=== PATIENT | male | born 1950 | race Caucasian/White ===

== ENCOUNTER → 2018-07-30 | Outpatient (CLI) | payer MEDICARE ==
--- NOTE | 2018-07-30 21:11 | MR ---
EXAMINATION TYPE: MR brain wo/w con DATE OF EXAM: 07/30/2018 COMPARISON: Prior CT brain 06/05/2014 HISTORY: Obstructive hydrocephalus, Dizziness TECHNIQUE: Multiplanar, multisequence images of the brain and brainstem is performed without and with IV contras t, utilizing 9.5 mL intravenous Gadavist . FINDINGS: Diffusion weighted images demonstrate no evidence of a recent infarct or other diffusion ab normality. There is no extra-axial fluid collection. Confluent and scattered hyperintensities are pr esent in the periventricular, subcortical, deep white matter on inversion recovery and T2-weighted se quences, there are approximately 50 lesions.. The low attenuation in the right frontal lobe with antonio rounding scoliosis is stable compared to prior CT at the site of patient's ventriculostomy. The ventr icular system and cisternal spaces are stable in size and appearance, prominent. The brain volume is age appropriate. Midline structures demonstrate some slight thinning of the posterior corpus callosum, pituitary, cerv ical medullary junction, cerebellopontine angles, cervical medullary junction are within normal limit s.. The craniocervical junction appears within normal limits. Post contrast images demonstrate no a bnormal enhancement. The dural venous sinuses appear patent. The visualized sinuses are remarkable fo r inflammatory change in the ethmoid air cells and the globes are intact. Inflammatory change noted w ithin the mastoid air cells on the right. IMPRESSION: Findings are similar to prior exam. Extensive white matter demyelination changes as descr ibed, prominent ventricles show a similar appearance to prior exam. Age-related atrophy. Additional f indings above.
== END ==
LOC: RADMRIMAIN 09:10
PROVIDERS: ATTEND Family Medicine
DX: G37.9 Demyelinating disease of central nervous system, unspecified (principal); G31.1 Senile degeneration of brain, not elsewhere classified
CPT/HCPCS: 82565; 70553; 36415; A9585

== ENCOUNTER → 2019-08-10 | Outpatient (CLI) | payer MEDICARE ==
[2019-08-10 16:15] LABS: Basophils # (A) 0.3 k/uL (0-0.2); Basophils % (A) 3 %; Eosinophils # (A) 0.2 k/uL (0-0.7); Eosinophils % (A) 2 %; HGB 16.7 gm/dL (13.0-17.5); Lymphocytes # (A) 0.9 k/uL (1.0-4.8); Lymphocytes % (A) 9 %; MCH 28.6 pg (25.0-35.0); MCHC 31.6 g/dL (31.0-37.0); MCV 90.3 fL (80.0-100.0); Mean Platelet Volume 7.6; Monocytes # (A) 0.8 k/uL (0-1.0); Monocytes % (A) 8 %; Neutrophils # (A) 7.7 k/uL (1.3-7.7); Neutrophils % (A) 76 %; Platelet Count 303 k/uL (150-450); RBC 5.86 m/uL (4.30-5.90); RDW 14.6 % (11.5-15.5); WBC 10.1 k/uL (3.8-10.6)
[2019-08-10 19:22] LABS: Erythrocyte Sedimentation Rate 24 mm/hr (0-15)
[2019-08-11 00:44] LABS: African American GFR (CKD) 101.4 (60.0-200.0); Anion Gap 10.1 mmol/L (4.00-12.00); BUN/Creat Ratio 25.56 Ratio (12.00-20.00); C Reactive Protein 6.6 mg/dL (0.0-0.8); Calcium 9.7 mg/dL (8.7-10.3); Carbon Dioxide 25.9 mmol/L (21.6-31.8); Non-African American GFR(CKD) 87.5 (60.0-200.0); Potassium 5.2 mmol/L (3.5-5.5); Uric Acid 5.9 mg/dL (3.7-8.7)
[2019-08-11 00:51] LABS: T4, Free (Free Thyroxine) 0.9 ng/dL (0.80-1.80)
[2019-08-11 07:26] LABS: Cyclic Citrull Pep IgG Unit <0.5 U/mL; Cyclic Citrullinated Pep IgG NEGATIVE (NEGATIVE)
[2019-08-11 09:03] LABS: HLA B27 NEGATIVE
[2019-08-11 12:22] LABS: Angiotensin-1 Converting Enz. 41 U/L (8-52)
== END | disposition home or self-care (01) ==
LOC: LABWHC1 15:32
PROVIDERS: ATTEND Orthopaedic Surgery
DX: M25.511 Pain in right shoulder (principal); E55.9 Vitamin D deficiency, unspecified; E03.9 Hypothyroidism, unspecified
CPT/HCPCS: 36415; 80048; 82164; 82306; 82550; 83520; 84439; 84443; 84450; 84460; 84550; 85025; 85652; 86038; 86140; 86200; 86431; 86812

== ENCOUNTER → 2019-08-16 | Outpatient (CLI) | payer MEDICARE ==
--- NOTE | 2019-08-16 16:10 | MR ---
EXAMINATION TYPE: MR shoulder RT wo con DATE OF EXAM: 08/16/2019 COMPARISON: NONE HISTORY: Right shoulder pain, primary osteoarthritis, rotator cuff tendon injury versus tear, and gle nohumeral osteoarthritis L per order. TECHNIQUE: Multiplanar, multisequence imaging of the right shoulder is attempted without contrast. FINDINGS: Because of patient pain he was only on able to completely axial imaging making evaluation s uboptimal or essentially nondiagnostic. There is moderate to large glenohumeral joint effusion noted. Long head of biceps shows normal location within the bicipital groove. Glenohumeral joint shows fair ly moderate narrowing and spurring on axial images. There is suggestion of 1.6 cm anterior round bone lesion axial image 13 could reflect intra-articular loose body. IMPRESSION: Incomplete nondiagnostic study with some incidental findings noted.
== END | disposition home or self-care (01) ==
LOC: RADMRIMAIN 06:14
PROVIDERS: ATTEND Orthopaedic Surgery
DX: Z53.9 Procedure and treatment not carried out, unspecified reason (principal)

== ENCOUNTER → 2020-09-03 | Outpatient (CLI) | payer MEDICARE ==
[2020-09-03 15:21] LABS: HCT 48.5 % (39.6-50.0); HGB 14.8 g/dL (13.0-17.0); MCH 27.5 pg (27.0-32.0); MCHC 30.5 g/dL (32.0-37.0); MCV 90.1 fL (80.0-97.0); Platelet Count 228 X 10*3/uL (140-440); RBC 5.38 X 10*6/uL (4.40-5.60); RDW 19.4 % (11.5-14.5); WBC 7.16 X 10*3/uL (4.50-10.00)
== END | disposition home or self-care (01) ==
LOC: LABWHC1 09:09
PROVIDERS: ATTEND Urology
DX: C61 Malignant neoplasm of prostate (principal); E29.1 Testicular hypofunction
CPT/HCPCS: 36415; 84153; 85027

== ENCOUNTER → 2020-11-05 | Outpatient (CLI) | payer MEDICARE ==
--- NOTE | 2020-11-05 14:43 | XR ---
EXAMINATION TYPE: XR chest 2V DATE OF EXAM: 11/05/2020 COMPARISON: Chest x-ray 10/16/2014 HISTORY: Z01.818 TECHNIQUE: Frontal and lateral views of the chest are obtained. FINDINGS: There is no focal air space opacity, pleural effusion, or pneumothorax seen. The cardiac silhouette size is within normal limits. 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 Prominent lung volumes could be indicative of underlying COPD. IMPRESSION: No acute cardiopulmonary process.
== END | disposition home or self-care (01) ==
LOC: RADXRMAIN 14:21
PROVIDERS: ATTEND Nurse Practitioner
DX: Z01.818 Encounter for other preprocedural examination (principal)
CPT/HCPCS: 71046

== ENCOUNTER 2023-01-25 17:09 | Emergency (ER) | payer MEDICARE ==
[2023-01-25 17:24] VITALS: RESP 18; TEMP 98
--- NOTE | 2023-01-25 17:43 | ED ---
Weakness HPI - General Chief complaint: Weakness Stated complaint: Can't Walk Time Seen by Provider: 01/25/23 17:28 Source: patient Mode of arrival: EMS Limitations: physical limitation - History of Present Illness Initial comments: This patient is a 72-year-old man who presents here to have evaluation of generalized weakness. The patient states that he was walking from his apartment to a store to get a drink when he felt like his knees were going to give out. He states that 2 people from the Apartments helped lower him to the ground so he did not fall. He rested for a moment and then was not able to get back up. EMS was called and the patient was still not able to get to a standing position so he was brought here. He denies focal weakness. He states that it feels like both knees are weak. He in fact had been feeling this way for number days and had called his physician to arrange an appointment which is coming this week. He is not having chest pain, dyspnea, focal weakness, headache neck or back pain. MD Complaint: generalized weakness Onset/Timin -: hour(s) Location: generalized Severity: moderate Consistency: constant Improves with: none Worsens with: none Associated Symptoms: denies other symptoms - Related Data Home Medications Medication Instructions Recorded Confirmed Multivitamins, Thera [Multivitamin 1 tab PO DAILY 01/25/23 01/25/23 (formulary)] Rosuvastatin [Crestor] 10 mg PO DAILY 01/25/23 01/25/23 Sildenafil Citrate 100 mg PO DAILY PRN 01/25/23 01/25/23 Vitamin D(Unknown Dose) 1 tab PO DAILY 01/25/23 01/25/23 Allergies Allergy/AdvReac Type Severity Reaction Status Date / Time naproxen sodium [From Aleve] Allergy Anaphylaxis Verified 01/25/23 20:11 Review of Systems ROS Statement: Those systems with pertinent positive or pertinent negative responses have been documented in the HPI. ROS Other: All systems not noted in ROS Statement are negative. Constitutional: Reports: weakness. Denies: fever, chills Eyes: Denies: vision change Respiratory: Denies: cough, dyspnea Cardiovascular: Denies: chest pain, palpitations, edema Gastrointestinal: Denies: abdominal pain, vomiting, diarrhea, melena, hemat ochezia Genitourinary: Denies: dysuria, hematuria Musculoskeletal: Denies: back pain Skin: Denies: rash Neurological: Denies: headache, weakness, numbness, paresthesias Past Medical History Past Medical History: Cancer, COPD, Hyperlipidemia, Memory Impairment, Osteoarthritis (OA), Prostate Disorder, Rheumatoid Arthritis (RA) Additional Past Medical History / Comment(s): Closed head injury D/T FALL DOWN STAIRS IN 2005 with post traumatic headaches-does get relief w/lumbar punctures occasionally to relieve pressure/fluid, dizziness and memory loss, POOR BALANCE/EQUALIBERIUM OFF,PROSTATE CA 5 yrs. ago w/surgery & radiation tx., un sure if has COPD, poss. History of Any Multi-Drug Resistant Organisms: None Reported Past Surgical History: Appendectomy, Cholecystectomy, Hernia Repair, Orthopedic Surgery, Prostate Surgery Additional Past Surgical History / Comment(s): closed head injury w/craniotomy, PROSTATECTOMY,. NUMEROUS PEACE KNEE SURGERIES ARTHROSCOPIC ,UMBILICAL HERNIA REPAIR ,CATARACT SX. Past Anesthesia/Blood Transfusion Reactions: No Reported Reaction Past Psychological History: No Psychological Hx Reported Smoking Status: Former smoker Past Alcohol Use History: Occasional Past Drug Use History: Marijuana - Past Family History Mother Family Medical History: Cancer Additional Family Medical History / Comment(s): COLON CANCER Brother(s) Family Medical History: Cancer Additional Family Medical History / Comment(s): LUNG & BONE General Exam Limitations: physical limitation General appearance: alert, in no apparent distress Head exam: Present: atraumatic, normocephalic Eye exam: Present: normal appearance. Absent: scleral icterus, conjunctival injection ENT exam: Present: normal oropharynx Neck exam: Present: normal inspection Respiratory exam: Present: normal lung sounds bilaterally. Absent: respiratory distress, wheezes, rales, rhonchi, stridor Cardiovascular Exam: Present: regular rate, normal rhythm, normal heart sounds. Absent: systolic murmur, diastolic murmur, rubs, gallop GI/Abdominal exam: Present: soft. Absent: distended, tenderness, guarding, rebound, rigid, mass Extremities exam: Present: normal inspection, normal capillary refill. Absent: pedal edema, calf tenderness Back exam: Present: normal inspection. Absent: CVA tenderness (R), CVA tenderness (L) Neurological exam: Present: alert, oriented X3, CN II-XII intact. Absent: motor sensory deficit Skin exam: Present: warm, dry, intact, normal color. Absent: rash Course Vital Signs 01/25/23 01/25/23 01/25/23 17:11 17:24 19:27 Temperature 98.0 F Pulse Rate 97 95 80 Respiratory 18 18 18 Rate Blood Pressure 145/92 186/93 O2 Sat by Pulse 95 98 Oximetry EKG Findings - EKG Results: EKG: interpreted by ERMD, sinus rhythm (Rate 97 bpm), normal axis - Blocks, [place], Hypertrophy, ST Abn: AV and intraventricular conduction: right bundle branch block (fixed/intermittent, complete/incomplete) Repolarization changes or abnormalities: nonspecific abnormality, ST segment, and/or T wave Medical Decision Making - Medical Decision Making The patient had chest x-ray which I interpreted as being negative for acute infiltrate, pneumothorax, congestive heart failure The patient is 72-year-old man here after having had episode of weakness observed by bystanders. The patient's physical exam and lab studies consistent with degree of dehydration. On reevaluation, the patient was quite upset about the length of his emergency department visit. I did attempt to further discuss the results and perform reevaluation, the patient would have none of this as she was quite upset. I attempted to explain that there were number of ambulance case is however he was not satisfied with this answer and just wanted to go and to follow-up later with his physician. Was pt. sent in by a medical professional or institution ([facility], SECURITY TECH, urgent care, hospital, or penitentiary...) When possible be specific @ -[No] Did you speak to anyone other than the patient for history (EMS, parent, family, police, friend...)? What history was obtained from this source @ -[No] Did you review nursing and triage notes (agree or disagree)? Why? @ -[I reviewed and agree with nursing and triage notes] Were old charts reviewed (outside hosp., previous admission, EMS record, old EKG, old radiological studies, urgent care reports/EKG's, penitentiary records)? Report findings @ -[No old charts were reviewed] Differential Diagnosis (chest pain, altered mental status, abdominal pain women, abdominal pain men, vaginal bleeding, weakness, fever, dyspnea, syncope, headache, dizziness, GI bleed, back pain, seizure, CVA, palpatations, mental health, musculoskeletal)? @ -[Differential Weakness: Hypoglycemia, shock, sepsis, hyponatremia, anemia, infection, SC, ETOH, adverse medicine reaction, overdose, stroke, this is not meant to be an all-inclusive list. EKG interpreted by me (3pts min.). @ -[As above] X-rays interpreted by me (1pt min.). @ -As above CT interpreted by me (1pt min.). @ -[None done] U/S interpreted by me (1pt. min.). @ -[None done] What testing was considered but not performed or refused? (CT, X-rays, U/S, labs)? Why? @ -[None] What meds were considered but not given or refused? Why? @ -[None] Did you discuss the management of the patient with other professionals (professionals i.e. , PA, SECURITY TECH, lab, RT, psych nurse, elementary school social worker, energy economist, teacher, hospital security officer, nurse case management)? Give summary @ -[No] Was smoking cessation discussed for >3mins.? @ -[No] Was critical care preformed (if so, how long)? @ -[No] Were there social determinants of health that impacted care today? How? (Homelessness, low income, unemployed, alcoholism, drug addiction, transportation, low edu. Level, literacy, decrease access to med. care, intermediate, rehab)? @ -[No] Was there de-escalation of care discussed even if they declined (Discuss DNR or withdrawal of care, Hospice)? DNR status @ -[No] What co-morbidities impacted this encounter? (DM, HTN, Smoking, COPD, CAD, Cancer, CVA, ARF, Chemo, Hep., AIDS, mental health diagnosis, sleep apnea, morbid obesity)? @ -[None] Was patient admitted / discharged? Hospital course, mention meds given and route , prescriptions, significant lab abnormalities, going to OR and other pertinent info. @ -[As above Undiagnosed new problem with uncertain prognosis? @ -[No] Drug Therapy requiring intensive monitoring for toxicity (Heparin, Nitro, Insulin, Cardizem)? @ -[No] Were any procedures done? @ -[No] Diagnosis/symptom? @ -Acute generalized weakness Acute dehydration Acute, or Chronic, or Acute on Chronic? @ -[Acute Uncomplicated (without systemic symptoms) or Complicated (systemic symptoms)? @ -[Uncomplicated Side effects of treatment? @ -[No] Exacerbation, Progression, or Severe Exacerbation? @ -[No] Poses a threat to life or bodily function? How? (Chest pain, USA, SC, pneumonia, PE, COPD, DKA, ARF, appy, cholecystitis, CVA, Diverticulitis, Homicidal, Suic idal, threat to staff... and all critical care pts) @ -[Uncertain at this point, as the patient wanted to leave and follow with his physician - Lab Data Result diagrams: 01/25/23 17:39 01/25/23 17:39 Lab Results 01/25/23 01/25/23 01/25/23 Range/Units 17:39 17:39 17:39 WBC 5.9 (3.8-10.6) k/uL RBC 4.71 (4.30-5.90) m/uL Hgb 14.6 (13.0-17.5) gm/dL Hct 43.0 (39.0-53.0) % MCV 91.3 (80.0-100.0) fL MCH 31.0 (25.0-35.0) pg MCHC 33.9 (31.0-37.0) g/dL RDW 15.2 (11.5-15.5) % Plt Count 204 (150-450) k/uL MPV 8.0 Neutrophils % 72 % Lymphocytes % 17 % Monocytes % 8 % Eosinophils % 2 % Basophils % 0 % Neutrophils # 4.2 (1.3-7.7) k/uL Lymphocytes # 1.0 (1.0-4.8) k/uL Monocytes # 0.5 (0-1.0) k/uL Eosinophils # 0.1 (0-0.7) k/uL Basophils # 0.0 (0-0.2) k/uL PT 10.5 (9.0-12.0) sec INR 1.0 (<1.2) APTT 23.9 (22.0-30.0) sec Sodium 141 (137-145) mmol/L Potassium 4.5 (3.5-5.1) mmol/L Chloride 110 H (98-107) mmol/L Carbon Dioxide 21 L (22-30) mmol/L Anion Gap 10 mmol/L BUN 31 H (9-20) mg/dL Creatinine 1.08 (0.66-1.25) mg/dL Est GFR (CKD-EPI)AfAm 79 (>60 ml/min/1.73 sqM) Est GFR (CKD-EPI)NonAf 69 (>60 ml/min/1.73 sqM) Glucose 105 H (74-99) mg/dL Plasma Lactic Acid Ashwin (0.7-2.0) mmol/L Calcium 9.7 (8.4-10.2) mg/dL Magnesium 2.3 (1.6-2.3) mg/dL Total Bilirubin 0.6 (0.2-1.3) mg/dL AST 28 (17-59) U/L ALT 24 (4-49) U/L Alkaline Phosphatase 67 (38-126) U/L Troponin I (0.000-0.034) ng/mL Total Protein 7.1 (6.3-8.2) g/dL Albumin 4.4 (3.5-5.0) g/dL Urine Color Urine Appearance (Clear) Urine pH (5.0-8.0) Ur Specific [place] (1.001-1.035) Urine Protein (Negative) Urine Glucose (UA) (Negative) Urine Ketones (Negative) Urine Blood (Negative) Urine Nitrite (Negative) Urine Bilirubin (Negative) Urine Urobilinogen (<2.0) mg/dL Ur Leukocyte Esterase (Negative) Urine RBC (0-5) /hpf Urine WBC (0-5) /hpf Ur Squamous Epith Cells (0-4) /hpf Hyaline Casts (0-2) /lpf Urine Mucus (None) /hpf Serum Alcohol <10 mg/dL 01/25/23 01/25/23 01/25/23 Range/Units 17:39 17:39 21:11 WBC (3.8-10.6) k/uL RBC (4.30-5.90) m/uL Hgb (13.0-17.5) gm/dL Hct (39.0-53.0) % MCV (80.0-100.0) fL MCH (25.0-35.0) pg MCHC (31.0-37.0) g/dL RDW (11.5-15.5) % Plt Count (150-450) k/uL MPV Neutrophils % % Lymphocytes % % Monocytes % % Eosinophils % % Basophils % % Neutrophils # (1.3-7.7) k/uL Lymphocytes # (1.0-4.8) k/uL Monocytes # (0-1.0) k/uL Eosinophils # (0-0.7) k/uL Basophils # (0-0.2) k/uL PT (9.0-12.0) sec INR (<1.2) APTT (22.0-30.0) sec Sodium (137-145) mmol/L Potassium (3.5-5.1) mmol/L Chloride (98-107) mmol/L Carbon Dioxide (22-30) mmol/L Anion Gap mmol/L BUN (9-20) mg/dL Creatinine (0.66-1.25) mg/dL Est GFR (CKD-EPI)AfAm (>60 ml/min/1.73 sqM) Est GFR (CKD-EPI)NonAf (>60 ml/min/1.73 sqM) Glucose (74-99) mg/dL Plasma Lactic Acid Ashwin 1.1 (0.7-2.0) mmol/L Calcium (8.4-10.2) mg/dL Magnesium (1.6-2.3) mg/dL Total Bilirubin (0.2-1.3) mg/dL AST (17-59) U/L ALT (4-49) U/L Alkaline Phosphatase (38-126) U/L Troponin I <0.012 (0.000-0.034) ng/mL Total Protein (6.3-8.2) g/dL Albumin (3.5-5.0) g/dL Urine Color Yellow Urine Appearance Clear (Clear) Urine pH 5.5 (5.0-8.0) Ur Specific [place] 1.031 (1.001-1.035) Urine Protein Trace H (Negative) Urine Glucose (UA) Negative (Negative) Urine Ketones Negative (Negative) Urine Blood Negative (Negative) Urine Nitrite Negative (Negative) Urine Bilirubin Negative (Negative) Urine Urobilinogen <2.0 (<2.0) mg/dL Ur Leukocyte Esterase Small H (Negative) Urine RBC 1 (0-5) /hpf Urine WBC 1 (0-5) /hpf Ur Squamous Epith Cells <1 (0-4) /hpf Hyaline Casts 13 H (0-2) /lpf Urine Mucus Moderate H (None) /hpf Serum Alcohol mg/dL Disposition Clinical Impression: Weakness, Dehydration Disposition: HOME SELF-CARE Condition: Fair Instructions (If sedation given, give patient instructions): Dehydration (ED), Weakness (ED) Is patient prescribed a controlled substance at d/c from ED?: No Referrals: Manpreet Peraza MD [Primary Care Provider] - 1-2 days
[2023-01-25 18:05] LABS: Basophils % (A) 0 %; Eosinophils # (A) 0.1 k/uL (0-0.7); Eosinophils % (A) 2 %; HGB 14.6 gm/dL (13.0-17.5); Lymphocytes % (A) 17 %; MCHC 33.9 g/dL (31.0-37.0); MCV 91.3 fL (80.0-100.0); Monocytes # (A) 0.5 k/uL (0-1.0); Monocytes % (A) 8 %; Neutrophils # (A) 4.2 k/uL (1.3-7.7); Neutrophils % (A) 72 %; Platelet Count 204 k/uL (150-450); RBC 4.71 m/uL (4.30-5.90); RDW 15.2 % (11.5-15.5); WBC 5.9 k/uL (3.8-10.6)
[2023-01-25 18:16] LABS: Partial Thromboplastin Time 23.9 sec (22.0-30.0); Prothrombin Time 10.5 sec (9.0-12.0)
[2023-01-25 18:25] LABS: Potassium 4.5 mmol/L (3.5-5.1)
[2023-01-25 18:26] LABS: ALT 24 U/L (4-49); AST 28 U/L (17-59); African American GFR (CKD) 79 (>60 ml/min/1.73 sqM); Albumin 4.4 g/dL (3.5-5.0); Alcohol <10 mg/dL; Alkaline Phosphatase 67 U/L (38-126); Anion Gap 10 mmol/L; Blood Urea Nitrogen 31 mg/dL (9-20); Calcium 9.7 mg/dL (8.4-10.2); Carbon Dioxide 21 mmol/L (22-30); Chloride 110 mmol/L (98-107); Glucose 105 mg/dL (74-99); Magnesium 2.3 mg/dL (1.6-2.3); Non-African American GFR(CKD) 69 (>60 ml/min/1.73 sqM); Sodium 141 mmol/L (137-145); Total Bilirubin 0.6 mg/dL (0.2-1.3); Total Protein 7.1 g/dL (6.3-8.2)
--- NOTE | 2023-01-25 18:52 | XR ---
EXAMINATION TYPE: XR chest 2V DATE OF EXAM: 01/25/2023 6:07 PM COMPARISON: Chest x-ray 09/13/2022 TECHNIQUE: XR chest 2V . CLINICAL INDICATION:Male, 72 years old with history of Weakness; FINDINGS: Lungs/Pleura: There is no evidence of pleural effusion, focal consolidation, or pneumothorax. Pulmonary vascularity: Unremarkable. Heart/mediastinum: Cardiomediastinal silhouette is unremarkable. Musculoskeletal: Right total shoulder arthroplasty. Mild degenerative changes of the thoracolumbar sp ine. IMPRESSION: No acute cardiopulmonary disease/process.
[2023-01-25 19:28] VITALS: BP 186/93; PULSE 80
[2023-01-25] MEDS ORDERED: SODIUM CHLORIDE 0.9% 1,000 ML IV ONE (20:00)
[2023-01-25 21:29] LABS: Appearance,Urine Clear (Clear); Bilirubin,Urine Negative (Negative); Blood,Urine Negative (Negative); Color,Urine Yellow; Glucose,Urine (UA) Negative (Negative); Hyaline Casts,Urine 13 /lpf (0-2); Ketones,Urine Negative (Negative); Leukocyte Esterase,Urine Small (Negative); Mucus,Urine Moderate /hpf; Nitrite,Urine Negative (Negative); PH, Urine 5.5 (5.0-8.0); Protein,Urine Trace (Negative); RBC,Urine 1 /hpf (0-5); Specific Gravity,Urine 1.031 (1.001-1.035); Squamous Epithelial Cell,Urine <1 /hpf (0-4); Urobilinogen,Urine <2.0 mg/dL (<2.0); WBC,Urine 1 /hpf (0-5)
== END 2023-01-25 22:36 | disposition home or self-care (01) ==
LOC: EC 17:09
DX: E86.0 Dehydration (principal); J44.9 Chronic obstructive pulmonary disease, unspecified; E78.5 Hyperlipidemia, unspecified; M06.9 Rheumatoid arthritis, unspecified; F12.90 Cannabis use, unspecified, uncomplicated; Z79.899 Other long term (current) drug therapy; Z87.891 Personal history of nicotine dependence; Z88.6 Allergy status to analgesic agent
CPT/HCPCS: 36415; 93005; 80053; 83605; 83735; 84484; 85025; 85610; 85730; 81001; 71046; 99285; 96360; G0480; 80320

== ENCOUNTER → 2023-04-06 | Outpatient (CLI) | payer MEDICARE ==
--- NOTE | 2023-04-07 07:59 | CT ---
EXAMINATION TYPE: CT left knee - [facility] Protocol DATE OF EXAM: 04/06/2023 COMPARISON: None HISTORY: PRIMARY OSTEOARTHRITIS left knee CT DLP: 687 mGycm Findings: There is bilateral hip arthropathy with findings compatible with osteonecrosis right femoral head. Diverticulosis of colon. Small fat-containing bilateral inguinal hernia. There is moderate hypertrophic degenerative changes right space. Soft tissue ossification is noted po steriorly. There is a Harper's cyst within the popliteal fossa measuring 4 cm. Small suprapatellar bur abby fluid collection. IMPRESSION: 1. 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 2. significant osteoarthritis tricompartment joint spaces. 3. Harper cyst measuring 4 cm.
== END | disposition home or self-care (01) ==
LOC: RADCTMAIN 14:16
PROVIDERS: ATTEND Orthopaedic Surgery
DX: M17.0 Bilateral primary osteoarthritis of knee (principal); M71.21 Synovial cyst of popliteal space [Baker], right knee; M87.851 Other osteonecrosis, right femur

== ENCOUNTER → 2023-07-15 | Outpatient (CLI) | payer MEDICARE ==
[2023-07-15 15:02] LABS: Partial Thromboplastin Time 24.8 sec (22.0-30.0); Prothrombin Time 10.8 sec (10.0-12.5)
[2023-07-15 18:47] LABS: HGB 14.2 g/dL (13.0-17.0); MCH 30.3 pg (27.0-32.0); MCV 91.7 FL (80.0-97.0); Mean Platelet Volume 10.4 FL (9.5-12.2); NRBC Per 100 WBC 0 X 10*3/uL (0.00-0.01); Platelet Count 205 X 10*3/uL (140-440); RBC 4.69 X 10*6/uL (4.40-5.60); RDW 14.1 % (11.5-14.5); WBC 5.77 X 10*3/uL (4.50-10.00)
[2023-07-15 18:50] LABS: ALT 19 U/L (10-49); AST 18 U/L (14-35); Albumin 4.5 g/dL (3.8-4.9); Albumin/Globulin Ratio 1.96 Ratio (1.60-3.17); Alkaline Phosphatase 72 U/L (41-126); BUN/Creat Ratio 23.25 Ratio (12.00-20.00); Blood Urea Nitrogen 18.6 mg/dL (9.0-27.0); Carbon Dioxide 24.4 mmol/L (21.6-31.8); Chloride 109 mmol/L (96-109); Globulin 2.3 g/dL (1.6-3.3); Glucose 98 mg/dL (70-110); Potassium 4.8 mmol/L (3.5-5.5); Sodium 146 mmol/L (135-145); Total Bilirubin 0.4 mg/dL (0.3-1.2); Total Protein 6.8 g/dL (6.2-8.2)
== END | disposition home or self-care (01) ==
LOC: LABPAT 13:32
PROVIDERS: ATTEND Orthopaedic Surgery
DX: Z01.812 Encounter for preprocedural laboratory examination (principal); Z22.322 Carrier or suspected carrier of Methicillin resistant Staphylococcus aureus; M17.12 Unilateral primary osteoarthritis, left knee; E11.9 Type 2 diabetes mellitus without complications
CPT/HCPCS: 80053; 83036; 85027; 85610; 85730; 87070

== ENCOUNTER → 2023-07-28 | Outpatient (CLI) | payer OTHER ==
--- NOTE | 2023-07-28 18:28 | CT ---
EXAMINATION TYPE: CT left knee - [facility] Protocol, CT left knee - [facility] Protocol CT DLP: 706 (accession [id number]), 693 (accession [id number]) mGycm, Automated exposure control for dose reduction was used. DATE OF EXAM: 07/28/2023 5:23 PM COMPARISON: 07/28/2023. 04/06/2023. CLINICAL INDICATION:Male, 73 years old with history of M17.12 UNILATERAL PRIMARY OSTEOARTHRITIS, LEFT KNE; PHH, pre-op left total knee TECHNIQUE: Axial images were obtained of the CT left knee - [facility] Protocol, CT left knee - [facility] Protoc ol, Additional coronal and sagittal reformatted images and soft tissue and bone window were obtained for review. Contrast used: mL of , (None if empty) Oral contrast used: (None if empty) FINDINGS:The visualized portion of the hips demonstrate severe right hip osteoarthrosis changes with osteophyte formation of the acetabulum subchondral sclerosis subchondral cystic change and possible e brandan subchondral collapse on the right with [id number] articulation. No acute intrapelvic process. The bony structures of the pelvis are intact. The visualized knee demonstrates osteophyte formation of the tibial plateau, the patella and femoral condyles. There is joint space narrowing and subchondral sclerosis. No evidence of fracture. Calcifi ed joint body is noted in the posterior medial joint space. Visualized ankle demonstrates multifocal osteoarthrosis changes with osteophyte formation and mild lianne int space narrowing. No evidence of fractures. Bilateral fat-containing inguinal hernias. Scattered colonic diverticula. IMPRESSION: 1. End-stage osteoarthrosis changes of the knee. 2. Severe right hip osteoarthrosis with [id number] articulation and subchondral sclerosis suggesti ve of osteonecrosis.
== END | disposition home or self-care (01) ==
LOC: RADCTMAIN 15:55
PROVIDERS: ATTEND Orthopaedic Surgery
DX: Z01.818 Encounter for other preprocedural examination (principal); M17.0 Bilateral primary osteoarthritis of knee; M16.11 Unilateral primary osteoarthritis, right hip

== ENCOUNTER 2023-07-30 10:36 | Observation (INO) | payer MEDICARE ==
[~2023-07-30 10:36] MED LIST: ACETAMINOPHEN TAB 500 MG TAB PO PRN; DEXAMETHASONE SOD PHOSPHATE 10 MG/ML 1 ML VIAL IV PRN; DOCUSATE 100 MG CAP PO PRN; FAMOTIDINE 20 MG/2 ML VIAL IVP PRN; HYDROmorphone 0.5 MG/0.5 ML SYRINGE IVP PRN; MIDAZOLAM 2 MG/2 ML VIAL IV PRN; ONDANSETRON 4 MG/2 ML VIAL IVP PRN; TRANEXAMIC 1,000 MG/100ML-NACL 1,000 MG in SALINE 1 100ML.BAG IV PRN; TRANEXAMIC 1,000 MG/100ML-NACL 1,000 MG in SALINE 1 100ML.BAG IVPB PRN; oxyCODONE ER 10 MG TAB.ER.12H PO PRN
[2023-07-30] MEDS ORDERED: MIDAZOLAM 2 MG/2 ML VIAL IVP ONE (11:37)
--- NOTE | 2023-07-30 11:58 | P.ANPRN ---
Procedure Note - Anesthesia - Nerve Block Performed Left Adductor Canal Single Time Out Performed: Yes (1136) Date of Procedure: 07/30/23 Procedure Start Time: 11:40 Procedure Stop Time: 11:50 Location of Patient: PreOp Indication: Acute Post-Operative Pain, Requested by Surgeon Sedation Type: Sedate with meaningful contact maintained Preparation: Sterile Prep, Sterile Dressing Position: Supine Catheter: None Needle Types: Pajunk Needle Gauge: 21 Ultrasound used to visualize needle placement: Yes Ultrasound used to observe medication spread: Yes Injectate: 0.5% Ropivacaine (see comment for volume) (20 mL of block solution containing 15 mL of 0.5% ropivacaine mixed with 5 mL of preservative-free normal saline) Blood Aspirated: No Pain Paresthesia on Injection Noted: No Resistance on Injection: Normal Image Stored and Saved: Yes Events: Uneventful and Well Tolerated Left iPack Single Time Out Performed: Yes (1136) Date of Procedure: 07/30/23 Procedure Start Time: 11:40 Procedure Stop Time: 11:50 Location of Patient: PreOp Indication: Acute Post-Operative Pain, Requested by Surgeon Sedation Type: Sedate with meaningful contact maintained Preparation: Sterile Prep, Sterile Dressing Position: Supine Catheter: None Needle Types: Pajunk Needle Gauge: 21 Ultrasound used to visualize needle placement: Yes Ultrasound used to observe medication spread: Yes Injectate: 0.5% Ropivacaine (see comment for volume) (20 mL of block solution co ntaining 15 mL of 0.5% ropivacaine mixed with 5 mL of preservative-free normal saline) Blood Aspirated: No Pain Paresthesia on Injection Noted: No Resistance on Injection: Normal Image Stored and Saved: Yes Events: Uneventful and Well Tolerated
[2023-07-30] MEDS: LACTATED RINGERS 1,000 ML IV SCH (12:11)
[2023-07-30] MEDS ORDERED: ePHEDrine 50 MG/ML 1 ML VIAL ONE (12:34)
[2023-07-30] MEDS ORDERED: KETAMINE HCL IN 0.9 % NACL 50 MG/5 ML SYRINGE ONE (12:34)
[2023-07-30] MEDS ORDERED: TRANEXAMIC 1,000 MG/100ML-NACL PREMIX BAG ONE (12:34)
[2023-07-30] MEDS ORDERED: SUCCINYLCHOLINE CHLORIDE 200 MG/10 ML VIAL IV ONE (12:34)
[2023-07-30] MEDS ORDERED: LIDOCAINE 1% INJ 10MG/ML (20 ML MDV) ONE (12:34)
[2023-07-30] MEDS ORDERED: PROPOFOL 10 MG/ML 20 ML VIAL IV ONE (12:34)
[2023-07-30] MEDS ORDERED: ROPIVACAINE 5 MG/ML 30 ML VIAL ONE (12:34)
[2023-07-30] MEDS ORDERED: fentaNYL (PF) 50 MCG/ML 2 ML AMP ONE (12:34)
[2023-07-30] MEDS ORDERED: MIDAZOLAM 2 MG/2 ML VIAL ONE (12:34)
[2023-07-30] MEDS ORDERED: SODIUM CHLORIDE 0.9% (PF) 10 ML VIAL ONE (12:34)
[2023-07-30] MEDS ORDERED: ROPIVACAINE/EPI/CLONIDINE/KET 50 ML SYRINGE MISCELLANE PRN (14:24)
[2023-07-30] MEDS ORDERED: NALOXONE 0.4 MG/ML 1 ML VIAL IV PRN (15:21)
[2023-07-30] MEDS ORDERED: HYDROmorphone 0.5 MG/0.5 ML SYRINGE IVP PRN (15:21)
[2023-07-30] MEDS ORDERED: MAGNESIUM HYDROXIDE 2,400 MG/30 ML CUP PO PRN (15:21)
[2023-07-30] MEDS ORDERED: ONDANSETRON 4 MG/2 ML VIAL IVP PRN (15:21)
--- NOTE | 2023-07-30 15:21 | P.OP ---
Date of Procedure: 07/30/23 Preoperative Diagnosis: Severe left knee osteoarthritis Postoperative Diagnosis: Severe left knee osteoarthritis Procedure(s) Performed: 1. Left total knee arthroplasty 2. Computer assisted musculoskeletal navigation using CT/MRI images Implants: 1. [employer] CR Femur Size #5 2. [employer] [place] Tibial Base Size #5 3. [employer] CS poly Size #10 4. [employer] all poly patella, Size #32 Anesthesia: JOSÉ MIGUEL, regional Surgeon: Bakari Romeo Estimated Blood Loss (ml): 200 IV fluids (ml): 800 Pathology: none sent Condition: stable Disposition: PACU Indications for Procedure: I met with the patient preoperatively in the office setting and discussed treatment of their symptomatic knee arthritis. They failed a long course of nonsurgical treatment and elected to proceed with an elective total knee replacement. I discussed the potential risks and complications at length and gave them ample time to ask questions. Risks discussed included: risks from anesthesia, superficial site surgical infection, acute and/or chronic periprosthetic joint infection, delayed wound healing, drainage, wound necrosis, instability, stiffness, stiffness requiring manipulation and/or revision surgery, damage to local blood vessels or nerves, aseptic loosening of the implants, extensor mechanism issues including disruption, patellar maltracking, avascular necrosis etc., continued or worsened knee pain, generalized dissatisfaction with surgical outcome, need for revision surgery, an inability to regain preinjury level of function, DVT, PE, other medical complications, and possibly loss of life or limb. The patient voiced their understanding that while these are the most common complications other less common complications are possible. They provided both their verbal and written consent to go forward with surgery. Operative Findings: Severe tricompartmental knee osteoarthritis Description of Procedure: The patient was identified in preoperative holding and the correct operative extremity was verified and marked with a marker. I reviewed the consent form with the patient at length. All of their questions were answered. The patient was given a block by anesthesia. They were then brought back to the operating room. They were transferred onto the operating room table where a general anesthetic, preoperative antibiotics, and tranexamic acid were administered by anesthesia. A tourniquet was applied to the proximal aspect of the operative extremity. The contralateral extremity was padded under the heel and secured to the operating room table with a nonsterile blue towel and tape. The ipsilateral arm was carefully draped across the patient's chest and secured with a pillow and foam. A post was applied over the lateral aspect of the ipsilateral thigh and a bolster was placed under the ipsilateral foot. I verified that the operative extremity was stable and the knee was flexed to 90. The operative extremity was then placed in a leg dangelo, nonsterile drapes were applied, and the extremity was prepped and draped sterilely in the standard sterile fashion. Prior to starting surgery timeout was performed identifying the correct patient, operative extremity, and procedure. The leg was then elevated, exsanguinated with an Esmarch bandage, and the tourniquet was inflated. An anterior midline incision was made sharply with a scalpel. Once I had dissected deep to the superficial fascial layer medial and lateral flaps were elevated. A medial parapatellar arthrotomy was created. Upon opening the knee joint there were diffuse arthritic changes in all 3 compartments. The anterior horn of the medial meniscus were sharply released and a medial release was performed around the posterior medial corner of the knee to facilitate retractor placement. The fat pad was excised with electrocautery. The patella was found to be severely arthritic and a provisional cut was made with a sagittal saw to facilitate mobilization of the extensor mechanism during the procedure. Remnants of the ACL and PCL were then excised from the notch. 4 mm pins were then placed within the incision in the medial distal femur and proximal tibia. Arrays were applied to the pins and I verified they were completely tightened. The knee was then registered with the AdNectar robot and manipulations in implant position were made to balance the knee and opitmize implant position. Using the Tucker robotic saw all cuts were made in accordance with our plan. After all bony fragments had been removed the cuts were verified with the planar probe. The tibia was then subluxed forward and sized. The knee was brought into flexion and a lamina grinder hardboard was placed to allow removal of the meniscal remnants both medially and laterally as well as posterior osteophytes. Local anesthetic was then infiltrated around the joint capsule. Trial implants were then placed within the knee. Range of motion and collateral ligament tension was then evaluated. Adjustments in implant size and position were then made accordingly. Once the knee was felt to be appropriately balanced the Tucker pins were removed. The patella was then recut, sized, and punched. A trial patellar button was then placed. With the trial components in place, the patella tracked midline. The femur was then drilled and the trial component removed. The trial tibial component was then appropriately rotated, pinned, and prepared for the keel. All trial components were then removed from the knee. The knee was thoroughly irrigated with pulsatile lavage. Cement was prepared via vacuum mixing in a bowl on the back table. I then hand pressurized cement into the femur and tibia and placed the implants beginning with the tibial base tray and poly liner, femoral component, and finally the patellar button. All extruded cement was removed including from the pin sites. Once the cement had hardened the knee was evaluated one final time with the final polyethylene liner in place. The knee had full extension and flexion and felt stable to varus and valgus stress throughout the arc of motion. The tourniquet was released and with the tourniquet down the patella tracked midline. All bleeders were controlled with electrocautery. The knee was then soaked for 3 minutes with a dilute Betadine soak. The knee was thoroughly irrigated using 3 L of sterile saline and pulsatile lavage. A deep drain was placed. The extensor mechanism was then reapproximated using pop off Vicryl sutures followed by a running barbed suture. The knee was then closed in layers with a 0 strata fix for the deep fascial layer, 2-0 strata fix for the superficial subcutaneous layer and Monocryl and Steri-Strips for the skin. A sterile dressing and drain sponge were applied. I verified that all instrument, sponge, and sharp counts were correct. The patient was then transferred off the operating room table, extubated, and brought to recovery having tolerated the procedure well. PLAN: The patient can weight-bear as tolerated on the operative extremity. DVT prophylaxis with aspirin 81 mg twice a day based on preoperative risk stratification. Follow-up in the office in 2 weeks for wound check and x-rays of the knee including an AP and lateral.
[2023-07-30] MEDS ORDERED: LABETALOL SYRINGE 5 MG/ML (4 ML SYR) IVP ONE ×2 (16:07→16:19)
--- NOTE | 2023-07-30 16:09 | XR ---
EXAMINATION TYPE: XR knee limited LT DATE OF EXAM: 07/30/2023 COMPARISON: NONE HISTORY: 73-year-old male evaluation for postoperative abnormality in alignment TECHNIQUE: 2 views FINDINGS: Images show placement of left total knee arthroplasty. Multiple distal femoral and proximal tibial components of the prosthesis are well seated without periprosthetic fracture. Alignment gross ly anatomic. Anterior soft tissue swelling with soft tissue air and intra-articular air related to re cent operation. IMPRESSION: Uncomplicated postoperative appearance left total knee arthroplasty.
[2023-07-30] MEDS: SODIUM CHLORIDE 0.9% 1,000 ML IV SCH (17:15)
[2023-07-30] MEDS: SENNOSIDES-DOCUSATE SODIUM 1 EACH TAB PO SCH (19:52)
[2023-07-30] MEDS: ASPIRIN 81 MG PO SCH (19:52)
[2023-07-30] MEDS: HYDROcodone/APAP 5-325MG 1 EACH TAB PO PRN (19:53)
[2023-07-30] MEDS ORDERED: VANCOMYCIN 1,000 MG in SODIUM CHLORIDE 0.9% 250 ML IVPB STA (20:54)
[2023-07-30] MEDS ORDERED: VANCOMYCIN 1,500 MG in SODIUM CHLORIDE 0.9% 500 ML 500 ML IVPB ONE (21:15)
[2023-07-30] MEDS ORDERED: TEMAZEPAM 15 MG CAP PO PRN (22:00)
[2023-07-31] MEDS: HYDROcodone/APAP 5-325MG 1 EACH TAB PO PRN ×3 (01:04→23:58)
[2023-07-31] MEDS: SODIUM CHLORIDE 0.9% 1,000 ML IV SCH ×3 (01:07→19:26)
--- NOTE | 2023-07-31 04:39 | P.CONS ---
History of Present Illness - Reason for Consult Consult date: 07/30/23 perioperative medical management - Chief Complaint left knee replacement - History of Present Illness 73 year old male with hyeprtension , hyperlipidemia , coming in for scheduled left total knee arthroplasty , tolerated procedure well, no observed immediate post op complications , denies any chest pain or trouble breathing, no nausea , vomiting, abd pain , tolerated PO intake , passed urine output , and walked with assistance. denies any complaints at this time , and claims that pain well tolerated review of systems Pertinent positives as noted in HPI. All other systems were reviewed and are negative on exam Constitutional: No acute distress, conversant, pleasant Eyes: Anicteric sclerae, moist conjunctiva, Pupils equal round reactive to light Lungs: Clear to auscultation Clear to percussion Normal respiratory effort, no accessory muscle use Cardiovascular: Heart regular in rate and rhythm, No murmurs, gallops, or rubs No peripheral edema Abdominal: Soft Nontender, no guarding, rebound or rigidity Abdomen moving with respiration Normoactive bowel sounds Extremities: No digital cyanosis No clubbing Pedal pulses intact and symmetrical Radial pulses intact and symmetrical No calf tenderness Psychiatric: Alert and oriented to person, place and time Appropriate affect fair judgement Neuro Muscles Strength 5/5 in all 4 extremities Sensation to light touch grossly present throughout Cranial nerves II-XII grossly intact Past Medical History Past Medical History: Cancer, COPD, Hyperlipidemia, Memory Impairment, Osteoarthritis (OA), Prostate Disorder, Rheumatoid Arthritis (RA) Additional Past Medical History / Comment(s): Closed head injury D/T FALL DOWN STAIRS IN 2005 with post traumatic headaches-does get relief w/lumbar punctures occasionally to relieve pressure/fluid, dizziness and memory loss, POOR BALANCE/EQUALIBERIUM OFF, PROSTATE CA 5 yrs. ago w/surgery & radiation tx., unsure if has COPD, poss. History of Any Multi-Drug Resistant Organisms: None Reported Past Surgical History: Appendectomy, Cholecystectomy, Hernia Repair, Orthopedic Surgery, Prostate Surgery Additional Past Surgical History / Comment(s): closed head injury w/craniotomy, PROSTATECTOMY,. NUMEROUS PEACE KNEE SURGERIES ARTHROSCOPIC ,UMBILICAL HERNIA REPAIR ,CATARACT SX. Past Anesthesia/Blood Transfusion Reactions: No Reported Reaction Past Psychological History: No Psychological Hx Reported Additional Psychological History / Comment(s): occasional confusion and short term memory loss related to past closed head injury Smoking Status: Former smoker Past Alcohol Use History: Occasional Additional Past Alcohol Use History / Comment(s): STARTED SMOKING AT AGE 21QUIT SMOKING CIGARETTES MAY 2014- SMOKED 1PPD Past Drug Use History: Marijuana Additional Drug Use History / Comment(s): OCCASIONALLY SMOKES 1/2 - 1 JOINT OCCASIONAL - Past Family History Mother Family Medical History: Cancer Additional Family Medical History / Comment(s): COLON CANCER Brother(s) Family Medical History: Cancer Additional Family Medical History / Comment(s): LUNG & BONE Medications and Allergies Home Medications Medication Instructions Recorded Confirmed Type Celecoxib [CeleBREX] 200 mg PO DAILY 07/27/23 07/27/23 History Mupirocin 2% Oint [Bactroban 2% 1 applic NASAL BID 07/27/23 07/27/23 History Oint] Rosuvastatin [Crestor] 10 mg PO DAILY 07/27/23 07/27/23 History amLODIPine [Norvasc] 10 mg PO DAILY 07/27/23 07/27/23 History Allergies Allergy/AdvReac Type Severity Reaction Status Date / Time naproxen sodium [From Aleve] Allergy Anaphylaxis Verified 07/30/23 11:16 Physical Exam Vitals: Vital Signs Temp Pulse Resp BP Pulse Ox 07/30/23 19:41 82 157/79 98 07/30/23 18:02 88 157/80 07/30/23 17:46 90 167/89 99 07/30/23 17:32 94 18 159/81 99 07/30/23 16:43 80 16 166/82 95 07/30/23 16:30 77 16 168/86 97 07/30/23 16:15 84 16 174/85 97 07/30/23 16:00 100 16 193/82 97 07/30/23 15:45 105 H 16 174/87 98 07/30/23 15:30 111 H 16 170/85 94 L 07/30/23 15:13 97.8 F 98 16 159/71 98 07/30/23 12:04 71 16 142/68 98 07/30/23 11:21 97.8 F 89 16 174/87 96 Intake and Output 07/30/23 07/30/23 07/31/23 14:59 22:59 06:59 Intake Total 750 150 Output Total 100 Balance 650 150 Intake: IV 750 150 Output: Estimated Blood Loss 100 Other: Voiding Method Urinal # Voids 1 Weight 92.7 kg 92.7 kg Assessment and Plan Assessment: hypertension slightly elevated resume amlodipine optimize pain control hyperlipidemia resume crestor check CBC and BMP in am stable from medical standpoint left total knee arthroplasty DVT PPX and pain control per primary surgical team thank you for this consultation
[2023-07-31] MEDS: hydrOXYzine pamoate 25 MG CAP PO PRN ×2 (04:49→23:59)
[2023-07-31] MEDS: LACTATED RINGERS 1,000 ML IV SCH (05:41)
--- NOTE | 2023-07-31 07:36 | P.PN ---
Subjective Progress Note Date: 07/31/23 Patient is complaining of pain in his left knee this morning. He has no other complaints. He denies chest pain or shortness of breath. He states he has been up and put weight on his left leg last night. Objective - Vital Signs Vital signs: Vital Signs Temp 97.6 F 07/31/23 00:40 Pulse 83 07/31/23 00:40 Resp 18 07/31/23 00:40 BP 145/83 07/31/23 00:40 Pulse Ox 99 07/31/23 00:40 FiO2 Intake & Output 07/30/23 07/31/23 07/31/23 18:59 06:59 18:59 Intake Total 900 Output Total 100 Balance 800 Weight 92.7 kg 92.7 kg Intake: IV 900 Output: Estimated Blood Loss 100 Other: Voiding Method Urinal # Voids 1 5 - Exam The patient is resting comfortably in bed. Is alert and able to answer questions. A focused examination of the left lower extremity was conducted. There are clean dressings with no drainage or strikethrough over the anterior aspect of the knee and the drain site. The drain has been previously removed. There is mild swelling throughout the knee. His thigh and calf are soft. Motor function is intact throughout the left lower extremity. Assessment and Plan Assessment: Postoperative day #1 status post left total knee replacement, doing well Short-term memory impairment Plan: 1. Up with assistance and a walker, weight-bear as tolerated left lower extremity 2. Leave surgical dressing in place 3. 2 doses of postoperative antibiotics completed. The patient was given a postoperative dose of vancomycin given that he tested positive for MRSA on preoperative nasal swab 4. DVT prophylaxis with aspirin 81 mg twice a day 5. Internal medicine assistance with perioperative medical management appreciated 6. Physical therapy for gait training 7. Dispo: We will still the patient does with physical therapy this morning. The patient has issues with short-term memory and lives alone so he may ultimately require discharge to rehab or [facility] facility.
[2023-07-31] MEDS: ATORVASTATIN 20 MG TAB PO SCH (08:16)
[2023-07-31] MEDS: ASPIRIN 81 MG PO SCH ×2 (08:16→20:15)
[2023-07-31] MEDS: amLODIPine 10 MG TAB PO SCH (08:16)
[2023-07-31 10:13] LABS: Basophils # (A) 0.02 X 10*3/uL (0.00-0.10); Basophils % (A) 0.2 %; Eosinophils # (A) 0 X 10*3/uL (0.04-0.35); Eosinophils % (A) 0 %; HCT 34.8 % (39.6-50.0); HGB 11.6 g/dL (13.0-17.0); Lymphocytes # (A) 0.72 X 10*3/uL (0.90-5.00); Lymphocytes % (A) 6.9 %; MCH 30.1 pg (27.0-32.0); MCHC 33.3 g/dL (32.0-37.0); MCV 90.4 FL (80.0-97.0); Mean Platelet Volume 10.2 FL (9.5-12.2); Monocytes # (A) 1.05 X 10*3/uL (0.20-1.00); NRBC Per 100 WBC 0 X 10*3/uL (0.00-0.01); Neutrophils # (A) 8.69 X 10*3/uL (1.80-7.70); Neutrophils % (A) 82.6 %; Platelet Count 188 X 10*3/uL (140-440); RBC 3.85 X 10*6/uL (4.40-5.60); RDW 13.6 % (11.5-14.5); WBC 10.51 X 10*3/uL (4.50-10.00)
[2023-07-31] MEDS: diazePAM 5 MG TAB PO PRN (11:39)
[2023-07-31] MEDS: HYDROcodone/APAP 10-325MG 1 EACH TAB PO PRN (14:24)
--- NOTE | 2023-07-31 15:17 | P.PN ---
Subjective Progress Note Date: 07/31/23 Hospital course: Patient is a very pleasant 73-year-old male with past medical history of hypertension, hyperlipidemia, and osteoarthritis. Patient is currently admitted under orthopedic surgery team status post elective left total knee arthroplasty completed by on 07/30/23. We were consulted for medical management throughout patient's hospitalization. Physical exam: Patient seen and fully evaluated at bedside this morning. Patient is currently postoperative day one and was resting comfortably at this time, he reports having moderate postoperative pain and reports a difficult time ambulating this morning. Vital signs reviewed and stable. General: Nontoxic, no distress and appears stated age. Derm: Skin warm and dry, normal coloration for ethnicity. Head: Atraumatic, normocephalic and symmetric. Eyes: EOMs intact, no lid lag, and anicteric sclera Mouth: no lip lesions, mucus membranes moist Cardiovascular: regular rate and rhythm with normal S1S2, no murmur, positive posterior tibial pulses bilaterally, and cap refill < 2 seconds. Lungs: Respirations even, regular, and unlabored on room air. Lungs CTA bilaterally, no rhonchi, no rales, no wheezing, and no accessory muscle usage. Abdominal: soft, nontender to palpation, no guarding, no appreciable organomegaly Ext: No gross muscle atrophy, no edema, no contractures. Movement and sensatio n intact. Postoperative dressing/Gordo wrap in place. Neuro: Speech clear, face symmetrical and CN II-XII grossly intact with no noted focal neuro deficits Psych: Alert and oriented to person, place, time, and situation. Appropriate and pleasant affect. Assessment and Plan of Care: Acute postoperative blood loss anemia, stable and expected postoperative finding. Leukocytosis, reactive secondary to surgical procedure. This is stable and expected postoperative finding. Preoperative hemoglobin was 14.2 with postoperative hemoglobin of 11.6. No need for transfusion or further interventions at this time. We will continue to monitor with repeat morning CBC. Status post left total knee arthroplasty Severe osteoarthritis of left knee Management per primary admitting orthopedic surgery team including DVT prophylaxis, pain management, wound/dressing care, weightbearing, and PT/OT. Currently DVT prophylaxis with aspirin 81 mg twice a day. Hypertension Continue daily medication regimen with amlodipine 10 mg daily. Hyperlipidemia Continue daily medication regimen with rosuvastatin 10 mg daily. Continue heart healthy diet. Data reviewed: Vital signs reviewed and stable. Blood pressure 156/77, heart rate 89, respiratory rate 18, temp 97.7F, SpO2 of 97% on room air. Postoperative labs reviewed. CBC showing mild cytosis with WBC count of 10.51 and acute postoperative blood loss anemia with hemoglobin of 11.6. Thank you for allowing us to participate in the care of this pleasant patient. Do not hesitate to contact us with questions. Someone can be reached from the [facility] hospitalist group all hours of the day at [phone] or via [employer]. Patient was seen independently by Nurse Pracitioner. This document was prepared using [employer] dictation software. Please allow for errors in electronics engineering technologist, while rare they do occur. Charlie Velasco NP rendered care for this patient independently, reviewed the findings and plan as documented in the note above. I did not physically speak with or examine the patient on this date. Objective - Vital Signs Vital signs: Vital Signs Temp 97.7 F 07/31/23 07:05 Pulse 89 07/31/23 07:05 Resp 18 07/31/23 07:05 BP 156/77 07/31/23 07:05 Pulse Ox 97 07/31/23 07:05 FiO2 Intake & Output 07/30/23 07/31/23 07/31/23 18:59 06:59 18:59 Intake Total 900 Output Total 100 Balance 800 Weight 92.7 kg 92.7 kg Intake: IV 900 Output: Estimated Blood Loss 100 Other: Voiding Method Urinal # Voids 1 5 - Labs CBC & Chem 7: 07/31/23 06:17
[2023-07-31] MEDS: SENNOSIDES-DOCUSATE SODIUM 1 EACH TAB PO SCH (20:15)
[2023-08-01] MEDS ORDERED: ALPRAZolam 0.25 MG TAB PO PRN (03:25)
[2023-08-01] MEDS: LACTATED RINGERS 1,000 ML IV SCH (06:41)
--- NOTE | 2023-08-01 09:58 | P.PN ---
Subjective Progress Note Date: 08/01/23 Principal diagnosis: Primary osteoarthritis left knee. Status post total left knee arthroplasty. History of closed head injury. This is a 73-year-old male who is postop day #2 status post total left knee arthroplasty. The patient is stable from an orthopedic standpoint. He has minimal complaint of pain today. Patient is confused today and states that he is being "evicted today". He states there are 5 woman in his room last evening trying to get him out of here. Patient does have history of confusion and memory issues secondary to his closed head injury in the past. There is no complaint of nausea, vomiting or diarrhea. He's had no fever or chills. Objective - Vital Signs Vital signs: Vital Signs Temp 98.0 F 07/31/23 20:45 Pulse 92 08/01/23 08:00 Resp 18 08/01/23 08:00 BP 121/69 07/31/23 20:45 Pulse Ox 98 07/31/23 20:45 FiO2 Intake & Output 07/31/23 08/01/23 08/01/23 18:59 06:59 18:59 Other: Voiding Method Urinal Toilet Toilet Urinal Urinal # Voids 5 8 - Exam This is a 73-year-old male in no acute distress. He is slightly anxious stating that he is worried we are kicking out of his room today. Exam of the left lower extremity reveals that his dressing is clean, dry and intact. He does have a sl ight increase in swelling today. He is laying on his right side with knees and hips completely flexed. When asked, he does lie and his back and is able to straighten his knee to about 10 of flexion. He has full foot and ankle motion without difficulty or pain. He is nontender in the calf with palpation. Neurovascular status to the lower extremity is intact. - Labs CBC & Chem 7: 07/31/23 06:17 Labs: Abnormal Lab Results - Last 24 Hours (Table) 07/31/23 Range/Units 06:17 WBC 10.51 H (4.50-10.00) X 10*3/uL RBC 3.85 L (4.40-5.60) X 10*6/uL Hgb 11.6 L (13.0-17.0) g/dL Hct 34.8 L (39.6-50.0) % Neutrophils # 8.69 H (1.80-7.70) X 10*3/uL Lymphocytes # 0.72 L (0.90-5.00) X 10*3/uL Monocytes # 1.05 H (0.20-1.00) X 10*3/uL Eosinophils # 0 L (0.04-0.35) X 10*3/uL Assessment and Plan (1) Status post total left knee replacement Current Visit: Yes Status: Acute Code(s): Z96.652 - PRESENCE OF LEFT ARTIFICIAL KNEE JOINT SNOMED Code(s): 4329445453834 (2) Primary localized osteoarthritis of left knee Current Visit: Yes Status: Acute Code(s): M17.12 - UNILATERAL PRIMARY OSTEOARTHRITIS, LEFT KNEE SNOMED Code(s): 382619921008366 (3) History of closed head injury Current Visit: Yes Status: Acute Code(s): Z87.820 - PERSONAL HISTORY OF TRAUMATIC BRAIN INJURY SNOMED Code(s): 00851211682557 (4) Memory deficit Current Visit: Yes Status: Acute Code(s): R41.3 - OTHER AMNESIA SNOMED Cod e(s): 136958560 Plan: The clinical findings are discussed with the patient. He is assured that he is not being kicked out today. We discussed possibly going to inpatient rehab tomorrow if he meets criteria. I discussed the increased swelling with nursing staff. If the patient allows they may place a thigh-high compression stocking on the operative leg today. He is encouraged to continue icing the knee today. We will follow up tomorrow and hopefully discharge to inpatient rehab.
[2023-08-01 10:11] LABS: ALT 24 U/L (10-49); AST 26 U/L (14-35); Albumin 3.8 g/dL (3.8-4.9); Alkaline Phosphatase 67 U/L (41-126); BUN/Creat Ratio 15.12 Ratio (12.00-20.00); Blood Urea Nitrogen 12.1 mg/dL (9.0-27.0); Calcium 9.1 mg/dL (8.7-10.3); Carbon Dioxide 22.6 mmol/L (21.6-31.8); Chloride 105 mmol/L (96-109); Glucose 125 mg/dL (70-110); Potassium 3.7 mmol/L (3.5-5.5); Sodium 140 mmol/L (135-145); Total Bilirubin 0.6 mg/dL (0.3-1.2); Total Protein 5.8 g/dL (6.2-8.2)
--- NOTE | 2023-08-01 12:11 | P.PN ---
Subjective Progress Note Date: 08/01/23 Hospital course: Patient is a very pleasant 73-year-old male with past medical history of hypertension, hyperlipidemia, closed head injury with history of confusion and osteoarthritis. Patient is currently admitted under orthopedic surgery team status post elective left total knee arthroplasty completed by on 07/30/23. We were consulted for medical management throughout patient's hospitalization. Physical exam: Patient seen and fully evaluated at bedside this morning. He is postoperative day 2. Patient is confused this morning states that he is "being evicted" from his room. Patient reassured that he has not being evicted and that we are planning on sending him to rehab so he gets strong enough to go back home. Vital signs reviewed and stable. General: Nontoxic, no distress and appears stated age. Derm: Skin warm and dry, normal coloration for ethnicity. Head: Atraumatic, normocephalic and symmetric. Eyes: EOMs intact, no lid lag, and anicteric sclera Mouth: no lip lesions, mucus membranes moist Cardiovascular: regular rate and rhythm with normal S1S2, no murmur, positive posterior tibial pulses bilaterally, and cap refill < 2 seconds. Lungs: Respirations even, regular, and unlabored on room air. Lungs CTA bilaterally, no rhonchi, no rales, no wheezing, and no accessory muscle usage. Abdominal: soft, nontender to palpation, no guarding, no appreciable organomegaly Ext: No gross muscle atrophy, no edema, no contractures. Movement and sensation intact. Postoperative dressing/Gordo wrap in place. Neuro: Speech clear, face symmetrical and CN II-XII grossly intact with no noted focal neuro deficits Psych: Alert to person and place but confused to time and situation stating that he is being evicted. Appropriate and pleasant affect. Assessment and Plan of Care: Acute postoperative blood loss anemia, stable and expected postoperative finding. Leukocytosis, reactive secondary to surgical procedure. This is stable and expected postoperative finding. Preoperative hemoglobin was 14.2 with postoperative hemoglobin of 11.6. No need for transfusion or further interventions at this time. We will continue to monitor with repeat morning CBC. Status post left total knee arthroplasty Severe osteoarthritis of left knee Management per primary admitting orthopedic surgery team including DVT prophylaxis, pain management, wound/dressing care, weightbearing, and PT/OT. Currently DVT prophylaxis with aspirin 81 mg twice a day. Hypertension Continue daily medication regimen with amlodipine 10 mg daily. Hyperlipidemia Continue daily medication regimen with rosuvastatin 10 mg daily. Continue heart healthy diet. Data reviewed: Morning labs completed and reviewed. BMP showing slightly elevated anion gap of 12.40 otherwise no significant abnormalities. Magnesium normal findings at 2.0 and liver profile unremarkable. CBC remains pending at this time. Thank you for allowing us to participate in the care of this pleasant patient. Do not hesitate to contact us with questions. Someone can be reached from the [facility] hospitalist group all hours of the day at [phone] or via [employer]. Patient was seen independently by Nurse Pracitioner. This document was prepared using [employer] dictation software. Please allow for errors in specialty transformer assembler, while rare they do occur. Charlie Velasco NP rendered care for this patient independently, reviewed the findings and plan as documented in the note above. I did not physically speak with or examine the patient on this date. Objective - Vital Signs Vital signs: Vital Signs Temp 98.0 F 07/31/23 20:45 Pulse 92 07/31/23 20:45 Resp 18 07/31/23 20:45 BP 121/69 07/31/23 20:45 Pulse Ox 98 07/31/23 20:45 FiO2 Intake & Output 07/31/23 08/01/23 08/01/23 18:59 06:59 18:59 Other: Voiding Method Urinal Toilet Urinal # Voids 5 8 - Labs CBC & Chem 7: 08/02/23 04:36 08/01/23 05:14 Labs: Abnormal Lab Results - Last 24 Hours (Table) 07/31/23 Range/Units 06:17 WBC 10.51 H (4.50-10.00) X 10*3/uL RBC 3.85 L (4.40-5.60) X 10*6/uL Hgb 11.6 L (13.0-17.0) g/dL Hct 34.8 L (39.6-50.0) % Neutrophils # 8.69 H (1.80-7.70) X 10*3/uL Lymphocytes # 0.72 L (0.90-5.00) X 10*3/uL Monocytes # 1.05 H (0.20-1.00) X 10*3/uL Eosinophils # 0 L (0.04-0.35) X 10*3/uL
[2023-08-01] MEDS: ATORVASTATIN 20 MG TAB PO SCH (12:26)
[2023-08-01] MEDS: HYDROcodone/APAP 10-325MG 1 EACH TAB PO PRN ×2 (12:26→20:19)
[2023-08-01] MEDS: amLODIPine 10 MG TAB PO SCH (12:27)
[2023-08-01] MEDS: ASPIRIN 81 MG PO SCH ×2 (12:27→20:19)
[2023-08-01] MEDS: SENNOSIDES-DOCUSATE SODIUM 1 EACH TAB PO SCH (20:19)
[2023-08-02] MEDS: SODIUM CHLORIDE 0.9% 1,000 ML IV SCH ×2 (02:37→20:43)
--- NOTE | 2023-08-02 07:50 | P.DS ---
Providers Date of admission: 07/30/2023 Attending physician: Bakari Romeo Consults: 07/30/23 15:21 Consult Physician Routine Consulting Provider: Gris Read Consult Reason/Comments: post op medical management Do you want consulting provider notified?: Yes Primary care physician: Stated None Hospital Course: The patient is a very pleasant relatively healthy 73-year-old male who was admitted under my care this past Wednesday. He was taken to the operating room where an uncomplicated total the placement was performed. Following surgery was transferred to the orthopedic floor. He'll receive 2 doses of postoperative antibiotics. He was transitioned from IV to oral pain medications. He worked with physical therapy. Internal medicine assisted with perioperative medical management. Due to the patient living alone arrangements were made for discharge to rehab. He was ultimately cleared for discharge. Plan - Discharge Summary Discharge Rx Participant: Yes New Discharge Prescriptions: New Aspirin 81 mg PO BID #60 tab Omeprazole 40 mg PO DAILY #30 cap Celecoxib [CeleBREX] 200 mg PO BID #60 cap HYDROcodone/APAP 5-325MG [Valentine 5-325] 1 - 2 tab PO Q6HR PRN #32 tab PRN Reason: Pain Docusate [Colace] 100 mg PO BID #28 capsule Continue amLODIPine [Norvasc] 10 mg PO DAILY Rosuvastatin [Crestor] 10 mg PO DAILY Discontinued Celecoxib [CeleBREX] 200 mg PO DAILY No Action Mupirocin 2% Oint [Bactroban 2% Oint] 1 applic NASAL BID Discharge Medication List Mupirocin 2% Oint [Bactroban 2% Oint] 1 applic NASAL BID 07/27/23 [History] Rosuvastatin [Crestor] 10 mg PO DAILY 07/27/23 [History] amLODIPine [Norvasc] 10 mg PO DAILY 07/27/23 [History] Aspirin 81 mg PO BID #60 tab 07/31/23 [Rx] Celecoxib [CeleBREX] 200 mg PO BID #60 cap 07/31/23 [Rx] Docusate [Colace] 100 mg PO BID #28 capsule 07/31/23 [Rx] HYDROcodone/APAP 5-325MG [Valentine 5-325] 1 - 2 tab PO Q6HR PRN #32 tab 07/31/23 [Rx] Omeprazole 40 mg PO DAILY #30 cap 07/31/23 [Rx] Follow up Appointment(s)/Referral(s): Bakari Romeo MD [Medical Doctor] - 2 Weeks Activity/Diet/Wound Care/Special Instructions: 1. Weight-bear as tolerated on your operative extremity unless instructed otherwise. Use a walker or other assistive device to ambulate. 2. Leave surgical dressing in place. If your dressing becomes saturated with blood, there is drainage, or the dressing becomes loose please contact the office. 3. It is okay to shower with your surgical dressing, but do not submerge in water (no hot tubs, bath's, swimming etc.) 4. Make sure to take her blood clot prevention medication as prescribed (aspirin, Eliquis, Xarelto, and Plavix are commonly prescribed medications for blood clot prevention) 5. While taking Valentine or Percocet for pain make sure you're taking a stool softener (Colace) and drink lots of water. 6. Keep all follow-up appointments as scheduled. You will usually be seen in 1-2 weeks following surgery. 7. Please contact the office with any questions or concerns [phone] Discharge Disposition: HOME SELF-CARE
[2023-08-02] MEDS: HYDROcodone/APAP 10-325MG 1 EACH TAB PO PRN ×3 (08:15→18:52)
[2023-08-02] MEDS: ATORVASTATIN 20 MG TAB PO SCH (08:15)
[2023-08-02] MEDS: ASPIRIN 81 MG PO SCH ×2 (08:15→21:51)
[2023-08-02] MEDS: amLODIPine 10 MG TAB PO SCH (08:15)
[2023-08-02 09:21] LABS: Basophils # (A) 0.02 X 10*3/uL (0.00-0.10); Basophils % (A) 0.2 %; Eosinophils # (A) 0.02 X 10*3/uL (0.04-0.35); Eosinophils % (A) 0.2 %; HCT 35.1 % (39.6-50.0); HGB 11.6 g/dL (13.0-17.0); Lymphocytes # (A) 0.95 X 10*3/uL (0.90-5.00); Lymphocytes % (A) 11.3 %; MCH 30.3 pg (27.0-32.0); MCV 91.6 FL (80.0-97.0); Mean Platelet Volume 10.9 FL (9.5-12.2); Monocytes # (A) 1.11 X 10*3/uL (0.20-1.00); Monocytes % (A) 13.2 %; NRBC Per 100 WBC 0 X 10*3/uL (0.00-0.01); Neutrophils # (A) 6.25 X 10*3/uL (1.80-7.70); Neutrophils % (A) 74.5 %; Platelet Count 221 X 10*3/uL (140-440); RBC 3.83 X 10*6/uL (4.40-5.60); RDW 14.1 % (11.5-14.5)
--- NOTE | 2023-08-02 14:00 | P.PN ---
Subjective Progress Note Date: 08/02/23 Hospital course: Patient is a very pleasant 73-year-old male with past medical history of hypertension, hyperlipidemia, closed head injury with history of confusion and osteoarthritis. Patient is currently admitted under orthopedic surgery team status post elective left total knee arthroplasty completed by on 07/30/23. We were consulted for medical management throughout patient's hospitalization. Physical exam: Patient seen and fully evaluated at bedside this morning. He is postoperative day 3 patient doing well this morning. He is no longer having episodes of confusion and is back to baseline mentation alert and oriented 4. Patient reports mild pain in his left knee otherwise denies having any complaints or needs this morning. Patient currently being evaluated by physical therapy at this time to determine discharge needs versus discharge home with home care versus custodial facility. Vital signs reviewed and stable. General: Nontoxic, no distress and appears stated age. Derm: Skin warm and dry, normal coloration for ethnicity. Head: Atraumatic, normocephalic and symmetric. Eyes: EOMs intact, no lid lag, and anicteric sclera Mouth: no lip lesions, mucus membranes moist Cardiovascular: regular rate and rhythm with normal S1S2, no murmur, positive posterior tibial pulses bilaterally, and cap refill < 2 seconds. Lungs: Respirations even, regular, and unlabored on room air. Lungs CTA bilaterally, no rhonchi, no rales, no wheezing, and no accessory muscle usage. Abdominal: soft, nontender to palpation, no guarding, no appreciable organomegaly Ext: No gross muscle atrophy, no edema, no contractures. Movement and sensation intact. Postoperative dressing/Gordo wrap in place. Neuro: Speech clear, face symmetrical and CN II-XII grossly intact with no noted focal neuro deficits Psych: Alert to person and place but confused to time and situation stating that he is being evicted. Appropriate and pleasant affect. Assessment and Plan of Care: Acute postoperative blood loss anemia, stable and expected postoperative finding. Leukocytosis, reactive secondary to surgical procedure. This is stable and expected postoperative finding. Preoperative hemoglobin was 14.2 with postoperative hemoglobin of 11.6. No need for transfusion or further interventions at this time. We will continue to monitor with repeat morning CBC. Status post left total knee arthroplasty Severe osteoarthritis of left knee Management per primary admitting orthopedic surgery team including DVT prophylaxis, pain management, wound/dressing care, weightbearing, and PT/OT. Currently DVT prophylaxis with aspirin 81 mg twice a day. Hypertension Continue daily medication regimen with amlodipine 10 mg daily. Hyperlipidemia Continue daily medication regimen with rosuvastatin 10 mg daily. Continue heart healthy diet. Data reviewed: Morning labs completed and reviewed. CBC showing stable normocytic anemia with hemoglobin of 11.6. Vital signs reviewed and stable. Blood pressure 126/72, heart rate 100, respiratory rate 20, temp 98.0F, SpO2 of 93% on room air. Patient is medically optimized for discharge once evaluated by physical therapy and safe discharge plan can be made. Patient may be discharged once cleared by primary admitting orthopedic surgery team. Thank you for allowing us to participate in the care of this pleasant patient. Do not hesitate to contact us with questions. Someone can be reached from the [facility] hospitalist group all hours of the day at [phone] or via [employer]. Patient was seen independently by Nurse Pracitioner. This document was prepared using [employer] dictation software. Please allow for errors in nut sorter, while rare they do occur. Charlie Velasco NP rendered care for this patient independently, reviewed the fi ndings and plan as documented in the note above. I did not physically speak with or examine the patient on this date. Objective - Vital Signs Vital signs: Vital Signs Temp 98.0 F 08/02/23 07:01 Pulse 100 08/02/23 07:01 Resp 20 08/02/23 07:01 BP 126/72 08/02/23 07:01 Pulse Ox 93 L 08/02/23 07:01 FiO2 Intake & Output 08/01/23 08/02/23 08/02/23 18:59 06:59 18:59 Other: Voiding Method Toilet Urinal # Voids 2 3 # Bowel Movements 0 - Labs CBC & Chem 7: 08/02/23 04:36 08/01/23 05:14 Labs: Abnormal Lab Results - Last 24 Hours (Table) 08/01/23 Range/Units 05:14 Anion Gap 12.40 H (4.00-12.00) mmol/L Glucose 125 H (70-110) mg/dL Total Protein 5.8 L (6.2-8.2) g/dL
[2023-08-02] MEDS: LACTATED RINGERS 1,000 ML IV SCH (20:42)
[2023-08-02] MEDS: SENNOSIDES-DOCUSATE SODIUM 1 EACH TAB PO SCH (21:52)
[2023-08-02] MEDS: diazePAM 5 MG TAB PO PRN (21:53)
[2023-08-03] MEDS: HYDROcodone/APAP 10-325MG 1 EACH TAB PO PRN ×3 (01:41→13:05)
[2023-08-03] MEDS: LACTATED RINGERS 1,000 ML IV SCH (06:25)
[2023-08-03] MEDS: diazePAM 5 MG TAB PO PRN ×2 (06:31→15:00)
[2023-08-03 07:51] VITALS: RESP 19; TEMP 98.1
[2023-08-03] MEDS: amLODIPine 10 MG TAB PO SCH (09:55)
[2023-08-03] MEDS: ATORVASTATIN 20 MG TAB PO SCH (09:55)
[2023-08-03] MEDS: ASPIRIN 81 MG PO SCH (09:55)
[2023-08-03] MEDS: SODIUM CHLORIDE 0.9% 1,000 ML IV SCH (10:40)
--- NOTE | 2023-08-03 11:31 | P.PN ---
Progress Note - Text Progress Note Date: 08/03/23 The patient was seen this morning while ambulating in the hallway with therapy. He continues to improve following his knee replacement. He has no complaints. The patient has been cleared for discharge to rehab later today. Continue treatment as previously outlined.
[2023-08-03 14:35] VITALS: BP 158/80; PULSE 102
--- NOTE | 2023-08-03 15:43 | P.PN ---
Subjective Progress Note Date: 08/03/23 Hospital course: Patient is a very pleasant 73-year-old male with past medical history of hypertension, hyperlipidemia, closed head injury with history of confusion and osteoarthritis. Patient is currently admitted under orthopedic surgery team status post elective left total knee arthroplasty completed by on 07/30/23. We were consulted for medical management throughout patient's hospitalization. Physical exam: Patient seen and fully evaluated at bedside this morning. He is postoperative day 4 and continues to be doing well this morning. Patient remains at baseline mentation alert and oriented 3-4. He currently reports mild pain in his left knee otherwise denies having any needs or concerns. [facility]. Vital signs reviewed and stable. General: Nontoxic, no distress and appears stated age. Derm: Skin warm and dry, normal coloration for ethnicity. Head: Atraumatic, normocephalic and symmetric. Eyes: EOMs intact, no lid lag, and anicteric sclera Mouth: no lip lesions, mucus membranes moist Cardiovascular: regular rate and rhythm with normal S1S2, no murmur, positive posterior tibial pulses bilaterally, and cap refill < 2 seconds. Lungs: Respirations even, regular, and unlabored on room air. Lungs CTA bilaterally, no rhonchi, no rales, no wheezing, and no accessory muscle usage. Abdominal: soft, nontender to palpation, no guarding, no appreciable organomegaly Ext: No gross muscle atrophy, no edema, no contractures. Movement and sensation intact. Postoperative dressing/Gordo wrap in place. Neuro: Speech clear, face symmetrical and CN II-XII grossly intact with no noted focal neuro deficits Psych: Alert to person. Appropriate and pleasant affect. Assessment and Plan of Care: Acute postoperative blood loss anemia, stable and expected postoperative finding. Leukocytosis, reactive secondary to surgical procedure. This is stable and expected postoperative finding. Preoperative hemoglobin was 14.2 with postoperative hemoglobin of 11.6. No need for transfusion or further interventions at this time. Status post left total knee arthroplasty Severe osteoarthritis of left knee Management per primary admitting orthopedic surgery team including DVT prophylaxis, pain management, wound/dressing care, weightbearing, and PT/OT. Currently DVT prophylaxis with aspirin 81 mg twice a day. Hypertension Continue daily medication regimen with amlodipine 10 mg daily. Hyperlipidemia Continue daily medication regimen with rosuvastatin 10 mg daily. Continue heart healthy diet. Data reviewed: Vital signs reviewed and stable. Blood pressure 134/71, heart rate 99, respir atory rate 19, temperature 98.1F, SpO2 of 96% on room air. Patient is medically optimized for discharge once evaluated by physical therapy and safe discharge plan can be made. Patient may be discharged once cleared by primary admitting orthopedic surgery team. Thank you for allowing us to participate in the care of this pleasant patient. Do not hesitate to contact us with questions. Someone can be reached from the [facility] hospitalist group all hours of the day at [phone] or via [employer]. Patient was seen independently by Nurse Pracitioner. This document was prepared using [employer] dictation software. Please allow for errors in acquisition cost estimator, while rare they do occur. Charlie Velasco NP rendered care for this patient independently, reviewed the findings and plan as documented in the note above. I did not physically speak with or examine the patient on this date. Objective - Vital Signs Vital signs: Vital Signs Temp 98.1 F 08/03/23 06:56 Pulse 99 08/03/23 06:56 Resp 19 08/03/23 06:56 BP 134/71 08/03/23 06:56 Pulse Ox 96 08/03/23 06:56 FiO2 Intake & Output 08/02/23 08/03/23 08/03/23 18:59 06:59 18:59 Other: Voiding Method Toilet Toilet Urinal Urinal # Voids 2 - Labs CBC & Chem 7: 08/02/23 04:36 08/01/23 05:14 Labs: Abnormal Lab Results - Last 24 Hours (Table) 08/02/23 Range/Units 04:36 RBC 3.83 L (4.40-5.60) X 10*6/uL Hgb 11.6 L (13.0-17.0) g/dL Hct 35.1 L (39.6-50.0) % Immature Gran # 0.05 H (0.00-0.04) X 10*3/uL Monocytes # 1.11 H (0.20-1.00) X 10*3/uL Eosinophils # 0.02 L (0.04-0.35) X 10*3/uL
== END 2023-08-03 15:20 ==
LOC: OR 10:36 → 4SSUR 15:13 → OR 08-03 09:47 → 4SSUR 08-03 09:47
PROVIDERS: ADMIT Orthopaedic Surgery; ATTEND Orthopaedic Surgery
DX: M17.12 Unilateral primary osteoarthritis, left knee (principal); E78.5 Hyperlipidemia, unspecified; I10 Essential (primary) hypertension; M06.9 Rheumatoid arthritis, unspecified; J44.9 Chronic obstructive pulmonary disease, unspecified; R41.3 Other amnesia; R26.81 Unsteadiness on feet; H91.90 Unspecified hearing loss, unspecified ear; Z79.1 Long term (current) use of non-steroidal anti-inflammatories (NSAID); Z79.899 Other long term (current) drug therapy; Z88.6 Allergy status to analgesic agent; Z87.891 Personal history of nicotine dependence; Z85.46 Personal history of malignant neoplasm of prostate; Z86.69 Personal history of other diseases of the nervous system and sense organs; Z90.49 Acquired absence of other specified parts of digestive tract; Z90.79 Acquired absence of other genital organ(s); Z87.820 Personal history of traumatic brain injury; Z92.3 Personal history of irradiation; Z98.49 Cataract extraction status, unspecified eye; Z98.890 Other specified postprocedural states; Z80.0 Family history of malignant neoplasm of digestive organs; Z80.1 Family history of malignant neoplasm of trachea, bronchus and lung; Z80.8 Family history of malignant neoplasm of other organs or systems; Z82.49 Family history of ischemic heart disease and other diseases of the circulatory system
CPT/HCPCS: 0055T; 27447; 64447; 64999; 85025